=== PATIENT | male | born 1980 | race Hispanic/Latino ===

== ENCOUNTER 2024-05-04 06:58 | Observation (INO) | payer OTHER, SELFPAY ==
[2024-05-04] MEDS ORDERED: ASPIRIN 81 MG CHEWABLE TABLET ONE (07:16)
[2024-05-04 07:26] LABS: Absolute Basophils 0.1 K/uL (0-0.5); Absolute Eosinophils 0.2 K/uL (0-0.5); Absolute Lymphocytes (CBC) 2.4 K/uL (0.7-4.9); Absolute Monocytes 0.9 K/uL (0.1-1.3); Absolute Neutrophil 7.4 K/uL (1.8-8.0); Basophils % 0.6 % (0-1.3); Eosinophils % 1.6 % (0-4.4); Hematocrit 47.4 % (39.6-49.0); Lymphocytes % 22.2 % (15.3-44.8); MCH 30.9 pg (27.0-35.0); MCHC 33.8 g/dL (32.0-36.0); MCV 91.5 fL (80-100); MPV 7.5 fL (7.6-11.3); Monocytes % 8.1 % (3.3-12.3); Neutrophils % 67.5 % (41.7-73.7); Nucleated Red Blood Cells % 0.1 % (0-0); Platelets 383 thou/uL (152-406); RBC Red Blood Cell Count 5.18 M/uL (4.33-5.43); Red Cell Distribution Width 14.5 % (12.1-15.2)
[2024-05-04 07:41] LABS: PT Prothrombin Time 10.8 SECONDS (9.4-12.5); Protime INR 1.03
[2024-05-04 07:51] LABS: Anion Gap 8.9 mEq/L (5.0-15.0); Potassium 3.9 mEq/L (3.5-5.1); Troponin High Sensitivity 3.1 pg/mL (<58.9)
[2024-05-04] MEDS ORDERED: HEPARIN/D5W 25,000 UNIT/500 ML BAG IV ONE (07:54)
[2024-05-04] MEDS ORDERED: HEPARIN 5000 UNIT/ML 1 ML VIAL ONE ×2 (07:54→08:16)
--- NOTE | 2024-05-04 08:04 | ER ---
Nurse's Notes [facility] Name: Edward Chang Age: 44 yrs Sex: Male : 1980 Arrival Date: 05/04/2024 Time: 06:58 Bed 5 Private MD: Diagnosis: Chest pain, unspecified Presentation: 05/04 07:15 Coronavirus screen: Client denies travel out of the [place] in the last 14 days. At this ll1 time, the client does not indicate any symptoms associated with coronavirus-19. Ebola Screen: Patient denies travel to an Ebola-affected area in the 21 days before illness onset. Initial Sepsis Screen: Does the patient meet any 2 criteria? No. Patient's initial sepsis screen is negative. Does the patient have a suspected source of infection? No. Patient's initial sepsis screen is negative. Risk Assessment: Do you want to hurt yourself or someone else? Patient reports no desire to harm self or others. Onset of symptoms was May 04, 2024. 07:15 Method Of Arrival: Ambulatory ll1 07:15 Acuity: WANDA 2 ll1 07:18 Chief complaint: Patient states: Awoke SOB and CP. Numbness to L side of mouth/face. ll1 Both hands feel tingly. Feels better now. Triage Assessment: 07:10 General: Appears in no apparent distress. Behavior is calm, cooperative, appropriate ll1 for age. Pain: Denies pain. Cardiovascular: Reports chest pain, nausea, shortness of breath. Respiratory: Reports shortness of breath. Historical: - Allergies: 07:15 No Known Allergies; ll1 - Home Meds: 07:15 None [Active]; ll1 - PMHx: 07:15 None; ll1 - PSHx: 07:15 None; ll1 - Immunization history:: Adult Immunizations up to date. - Infectious Disease History:: Denies. - Social history:: Smoking status: Patient/guardian denies using tobacco, Stopped _ months ago 6. - Family history:: not pertinent. - Hospitalizations: : No recent hospitalization is reported. Screenin:22 [facility] ED Fall Risk Assessment (Adult) History of falling in the last 3 months, ll1 including since admission No falls in past 3 months (0 pts) Confusion or Disorientation No (0 pts) Intoxicated or Sedated No (0 pts) Impaired Gait No (0 pts) Mobility Assist Device Used No (0 pt) Altered Elimination No (0 pt) Score/Fall Risk Level 0 - 2 = Low Risk Maintained a safe environment, Hourly rounding (assess needs \T\ fall precautionary measures) done. Abuse screen: Denies threats or abuse. Nutritional screening: No deficits noted. Tuberculosis screening: No symptoms or risk factors identified. Assessment: 07:35 Reassessment: No changes from previously documented assessment. Patient and/or family ll1 updated on plan of care and expected duration. Pain level reassessed. Patient is alert, oriented x 3, equal unlabored respirations, skin warm/dry/pink. 07:35 Pain: Pain does not radiate. Pain began 2 hours ago. ll1 07:48 Reassessment: No changes from previously documented assessment. Patient and/or family ll1 updated on plan of care and expected duration. Pain level reassessed. Patient is alert, oriented x 3, equal unlabored respirations, skin warm/dry/pink. 08:05 Reassessment: No changes from previously documented assessment. Patient and/or family ll1 updated on plan of care and expected duration. Pain level reassessed. Patient is alert, oriented x 3, equal unlabored respirations, skin warm/dry/pink. 08:28 Reassessment: No changes from previously documented assessment. Patient and/or family ll1 updated on plan of care and expected duration. Pain level reassessed. Patient is alert, oriented x 3, equal unlabored respirations, skin warm/dry/pink. Vital Signs: 07:15 BP 145 / 90; Pulse 72; Resp 17; Temp 97.9(TE); Pulse Ox 96% on R/A; Weight 124.74 kg; iw Height 5 ft. 7 in. ; Pain 0/10; 07:40 BP 131 / 80; Pulse 68; Resp 17; Pulse Ox 96% on R/A; ll1 08:18 BP 133 / 86; Pulse 76; Resp 17; Pulse Ox 98% ; Pain 0/10; ll1 08:28 BP 139 / 86; Pulse 81; Resp 17; Temp 97.9; Pulse Ox 98% on R/A; Pain 0/10; ll1 07:15 Body Mass Index 43.07 (124.74 kg, 170.18 cm) iw 07:15 Pain Scale: Adult iw 08:18 Pain Scale: Adult ll1 08:28 Pain Scale: Adult ll1 ED Course: 06:59 Patient arrived in ED. mr 06:59 Karlo Luis MD is Attending Physician. rn 07:01 Fidelina Baker, TRINO is Primary Nurse. ll1 07:02 Arm band placed on Patient placed in an exam room, on a stretcher. ll1 07:10 Initial lab(s) drawn, by me, sent to lab. Missed attempt(s): 20 gauge in right ll1 antecubital area. Bleeding controlled, band aid applied, catheter tip intact. 07:16 Triage completed. ll1 07:21 Inserted saline lock: 20 gauge in left antecubital area, using aseptic technique. iw Flushed with 10 mL NS. 07:22 Breastfeeding Program Coordinator paged at 07:22. bd 07:22 Patient has correct armband on for positive identification. Bed in low position. ll1 Provided Education on: ER procedures and process. Client placed on continuous cardiac and pulse oximetry monitoring. NIBP monitoring applied. patient monitor on. 07:23 No provider procedures requiring assistance completed. Patient maintains SpO2 ll1 saturation greater than 95% on room air. 07:28 XRAY Chest (1 view) In Process Unspecified. EDMS 07:49 EKG done, by ED staff, reviewed by Karlo Luis MD. ll1 07:[address] Luis spoke with Dr Naik at 0750. bd 08:02 Inserted saline lock: 20 gauge in right antecubital area, using aseptic technique. kb4 Flushed with 10 mL NS. 08:04 Aaron Luis MD is Hospitalizing Provider. rn 08:19 Patient admitted, IV remains in place. ll1 Administered Medications: 07:15 Drug: Aspirin PO Chewable Tablet 324 mg PO once; 81 mg tablets x 4 Route: PO; iw 07:55 Follow up: Response: No adverse reaction ll1 08:03 Drug: Heparin (NV-Bolus No thrombolytic) - HEParin IVP 60 units/kg IVP once; Max 5000 ll1 units {Co-Signature: ss (Kiya Bridges RN).} Route: IVP; Site: right antecubital; 08:19 Follow up: Response: No adverse reaction ll1 08:04 Drug: Heparin ([place] Drip) 12 units/kg/[place] - ([place] [address] units, D5W IV 500 ml) IV at [facility] calculated rate Per protocol; Max initial rate 1000 units/hr {Co-Signature: ss (Kiya Bridges RN).} Route: IV; Rate: calculated rate; Site: right antecubital; 08:19 Follow up: Response: No adverse reaction; IV Status: Infusion continued upon admission; [facility] IV Intake: 6ml Medication: 07:22 VIS not applicable for this client. 1 Intake: 08: IV: 6ml; Total: 6ml. [facility] Outcome: 08:04 Decision to Hospitalize by Provider. rn 08: Admitted to OR accompanied by tech, via wheelchair, on monitor, with chart, [facility] : Condition: stable 08:19 Instructed on the need for admit, 08:28 Patient left the ED. [facility] Signatures: Dispatcher [employer] EDMS Jenniffer Pemberton, Amanda, Reg Reg mr Amanda Chavez RN RN iw Nieto, Roman, MD MD rn Lewis, Lynsay, RN RN [facility] Lilliana Marcial kb4 Kiya Bridges RN ss Corrections: (The following items were deleted from the chart) 07:22 07:15 BP 145 / 90; Pulse 72bpm; Resp 17bpm; Pulse Ox 96% RA; Pain 0/10, Adult; 1 1 07:30 07:15 BP 145 / 90; Pulse 72bpm; Resp 17bpm; Pulse Ox 96% RA; 124.74 kg; Height 5 ft. 7 iw in.; BMI: 43.0; Pain 0/10, Adult; 1 08:20 08:19 Pain: Pain does not radiate. Pain began 2 hours ago. [facility] 08:30 08:28 BP 139 / 86; Pulse 81bpm; Resp 17bpm; Pulse Ox 98% RA; 1 1
--- NOTE | 2024-05-04 08:04 | EDPHYS ---
Physician Documentation [facility] Name: Edward Chang Age: 44 yrs Sex: Male : 1980 Arrival Date: 05/04/2024 Time: 06:58 Bed 5 Private MD: ED Physician Karlo Luis HPI: 05/04 07:23 This 44 yrs old Male presents to ER via Ambulatory with complaints of Chest rn Pain, facial numbness. 07:23 The patient or guardian reports chest pain that is located primarily in the substernal rn area. Onset: just prior to arrival. The pain does not radiate. Associated signs and symptoms: Pertinent positives: nausea, palpitations, shortness of breath, Pertinent negatives: abdominal pain, cough, syncope, vomiting. The chest pain is described as aching, a heaviness. Duration: The patient or guardian reports a single episode, that lasted 25 minute(s). Modifying factors: The symptoms are alleviated by nothing. the symptoms are aggravated by nothing. Severity of pain: At its worst the pain was moderate in the emergency department the pain has resolved. Patient reports woke up from sleep with substernal chest pain, associated with shortness of breath, facial and bilateral hand tingling, nausea and indigestion. States went to bed feeling fine last night. No fever or chills. No recent illness. No trauma. Patient reports does suffer from anxiety. No previous medical problems other than hypertension. Father with significant history of strokes.. Historical: - Allergies: 07:15 No Known Allergies; ll1 - Home Meds: 07:15 None [Active]; ll1 - PMHx: 07:15 None; ll1 - PSHx: 07:15 None; ll1 - Immunization history:: Adult Immunizations up to date. - Infectious Disease History:: Denies. - Social history:: Smoking status: Patient/guardian denies using tobacco, Stopped _ months ago 6. - Family history:: not pertinent. - Hospitalizations: : No recent hospitalization is reported. ROS: 07:23 Constitutional: Negative for fever, chills, and weight loss, Cardiovascular: Positive rn for chest pain Respiratory: Positive for shortness of breath Abdomen/GI: Negative for abdominal pain, nausea, vomiting, diarrhea, and constipation, MS/Extremity: Negative for injury and deformity, Skin: Negative for injury, rash, and discoloration, Neuro: Negative for headache, weakness, and seizure, Exam: 07:23 Constitutional: This is a well developed, well nourished patient who is awake, alert, rn and in no acute distress. Cardiovascular: Regular rate and rhythm. No pulse deficits. Respiratory: No increased work of breathing, no retractions or nasal flaring. Abdomen/GI: Soft, non-tender MS/ Extremity: Pulses equal, no cyanosis. Neurovascular intact. Full, normal range of motion. Equal circumference. Neuro: Awake and alert, GCS 15, oriented to person, place, time, and situation. Cranial nerves II-XII grossly intact. Motor strength 5/5 in all extremities. Sensory grossly intact. Cerebellar exam normal. Normal gait. Ambulatory to room without difficulty or assistance Vital Signs: 07:15 BP 145 / 90; Pulse 72; Resp 17; Temp 97.9(TE); Pulse Ox 96% on R/A; Weight 124.74 kg; iw Height 5 ft. 7 in. ; Pain 0/10; 07:40 BP 131 / 80; Pulse 68; Resp 17; Pulse Ox 96% on R/A; ll1 08:18 BP 133 / 86; Pulse 76; Resp 17; Pulse Ox 98% ; Pain 0/10; ll1 08:28 BP 139 / 86; Pulse 81; Resp 17; Temp 97.9; Pulse Ox 98% on R/A; Pain 0/10; ll1 07:15 Body Mass Index 43.07 (124.74 kg, 170.18 cm) iw 07:15 Pain Scale: Adult iw 08:18 Pain Scale: Adult ll1 08:28 Pain Scale: Adult ll1 MDM: 06:59 Medical Screening Exam initiated rn 07:15 ED course: Called Dr. Wagner for STEMI consultation, no answer, message with ECG image rn sent, waiting quality control associate back.. 07:33 ED course: Called Dr. Wagner and paged him separately, no answer. . rn 07:35 ED course: ECG shows ST elevation in the inferior leads per my interpretation. Appears rn more J-point elevation and there are no reciprocal changes. This in commendation with completely resolved chest pain and asymptomatic patient, unlikely STEMI but still waiting cardiology consultation. Aspirin ordered and given. Still chest pain-free.. 07:49 ED course: Paged Dr. Naik for consultation, returned call quickly and recommends rn aspirin and heparin and will see patient.. 08:03 Differential diagnosis: abnormal EKG, acute myocardial infarction, anxiety, coronary rn artery disease chest wall pain, stable angina, unstable angina. HEART Score: History: Highly Suspicious (2), ECG: Non specific repolarization disturbance / LBTB / PM (1), Age: < or = 45 years (0), Risk Factors: 1 or 2 risk factors (1), Troponin: < or = 1 x Normal Limit (0), Total Score = 4. The patient was given aspirin in the Emergency Department. Data reviewed: vital signs, nurses notes, lab test result(s), EKG, radiologic studies, plain films, and as a result, I will admit patient. Consideration of Admission/Observation Patient was admitted/placed on observation. Escalation of care including admission/observation considered. Counseling: I had a detailed discussion with the patient and/or guardian regarding the historical points, exam findings, and any diagnostic results supporting the discharge/admit diagnosis, lab results, radiology results, the need for further work-up and treatment in the hospital. 05/04 07:10 Order name: Basic Metabolic Panel; Complete Time: 07: rn 05/04 07:10 Order name: CBC with Diff; Complete Time: rn 05/04 07:10 Order name: NT PRO-BNP; Complete Time: rn 05/04 07:10 Order name: PT-INR; Complete Time: : rn 05/04 07:10 Order name: Troponin HS; Complete Time: : rn 05/04 07:10 Order name: XRAY Chest (1 view) rn 05/04 08:15 Order name: Echo with Doppler EDKS 05/04 07:48 Order name: EKG; Complete Time: 07:49 ll1 05/04 07:10 Order name: Cardiac monitoring; Complete Time: 07: rn 05/04 07:10 Order name: EKG - Nurse/Tech; Complete Time: 07: rn 05/04 07:10 Order name: IV Saline Lock; Complete Time: 07: rn 05/04 07:10 Order name: Labs collected and sent; Complete Time: 07: rn 05/04 07:10 Order name: O2 Per Protocol; Complete Time: :05/04 07:10 Order name: O2 Sat Monitoring; Complete Time: 07:14 rn 05/04 07:48 Order name: EKG - Nurse/Tech; Complete Time: 07:48 ll1 Administered Medications: 07:15 Drug: Aspirin PO Chewable Tablet 324 mg PO once; 81 mg tablets x 4 Route: PO; iw 07:55 Follow up: Response: No adverse reaction ll1 08:03 Drug: Heparin (GA-Bolus No thrombolytic) - HEParin IVP 60 units/kg IVP once; Max 5000 ll1 units {Co-Signature: lyssa (Kiya Bridges RN).} Route: IVP; Site: right antecubital; 08:19 Follow up: Response: No adverse reaction ll1 08:04 Drug: Heparin ([place] Drip) 12 units/kg/[place] - ([place] [address] units, D5W IV 500 ml) IV at ll1 calculated rate Per protocol; Max initial rate 1000 units/hr {Co-Signature: lyssa (Kiya Bridges RN).} Route: IV; Rate: calculated rate; Site: right antecubital; 08:19 Follow up: Response: No adverse reaction; IV Status: Infusion continued upon admission; ll1 IV Intake: 6ml Disposition Summary: 05/04/24 08:04 Hospitalization Ordered Notes: Hospitalization Status: Observation rn Provider: Aaron Luis rn [facility] rn Condition: Stable rn Problem: new rn Symptoms: have improved rn Bed/Room Type: Standard rn Room Assignment: rn Diagnosis - Chest pain, unspecified rn Forms: - Medication Reconciliation Form rn - SBAR form rn - Leadership Thank You Letter rn Signatures: Dispatcher [employer] Amanda Hernandez RN RN Karlo Luis MD MD rn Lewis, Lynsay, RN RN ll1 Kiya Bridges RN ss Corrections: (The following items were deleted from the chart) 07:11 07:11 BASIC METABOLIC PANEL+C.LAB.BRZ ordered. EDMS EDMS 07:11 07:11 CBC+H.LAB.BRZ ordered. EDMS EDMS 07:11 07:11 PROBNP+C.LAB.BRZ ordered. EDMS EDMS 07:11 07:11 PROTIME (+INR)+COAG.LAB.BRZ ordered. EDMS EDMS 07:11 07:11 Troponin High Sensitivity+C.LAB.BRZ ordered. EDMS EDMS 07: 07:11 Chest Single View+RAD.RAD.BRZ ordered. EDMS EDMS 08:06 07:49 ED course: Paged Dr. Naik for consultation, come back quickly and sent to me rn CT. Recommends aspirin and heparin and will see patient.. rn
[2024-05-04] MEDS ORDERED: HEPARIN 10,000 UNIT/10 ML VIAL IV ONE (08:15)
[2024-05-04] MEDS ORDERED: LIDOCAINE 1% 20 ML MDV ONE (08:15)
[2024-05-04] MEDS ORDERED: HEPA 1000U/500MLS 2,000 UNIT/1,000 ML BAG IV ONE (08:15)
[2024-05-04] MEDS ORDERED: MIDAZOLAM HCL 2 MG/2 ML INJ ONE (08:16)
[2024-05-04] MEDS ORDERED: TICAGRELOR 90 MG TABLET PO ONE (08:16)
[2024-05-04] MEDS ORDERED: CLOPIDOGREL 75 MG TABLET ONE (08:16)
[2024-05-04] MEDS ORDERED: ATROPINE SULF 1 MG/10 ML SYR IV ONE (08:16)
[2024-05-04] MEDS ORDERED: NALOXONE 0.4 MG/ML VIAL ONE (08:17)
[2024-05-04] MEDS ORDERED: FENTANYL CITR 100 MCG/2 ML ONE (08:17)
[2024-05-04] MEDS ORDERED: FLUMAZENIL 0.1 MG/ML (5 mL VIAL) IV ONE (08:17)
[2024-05-04] MEDS ORDERED: ASPIRIN 325 MG TAB ONE (08:17)
--- NOTE | 2024-05-04 08:33 | RAD REPORT ---
EXAMINATION: ONE VIEW CHEST XR CLINICAL INDICATION: CHEST PAIN TECHNIQUE: Frontal chest projection is submitted. Examination is limited by patient positioning and t echnique. COMPARISON: No prior exam. FINDINGS: The lungs are well inflated and clear. The heart is upper limit of normal in size. No displaced fract ures identified. IMPRESSION: No acute intrathoracic abnormalities.
[2024-05-04] MEDS ORDERED: NA CHLORIDE 0.9% 500 ML ONE (08:35)
[2024-05-04 09:02] VITALS: TEMP 97.9
[2024-05-04] MEDS ORDERED: MORPHINE 2 MG/ML SYR IV PRN (10:01)
[2024-05-04] MEDS ORDERED: ASPIRIN EC 81 MG TAB PO SCH (10:01)
[2024-05-04] MEDS ORDERED: HEPARIN/D5W 25,000 UNIT/500 ML BAG IV SCH (10:01)
[2024-05-04] MEDS ORDERED: NA CHLORIDE 0.9% 1,000 ML IV SCH (10:01)
[2024-05-04] MEDS ORDERED: ONDANSETRON 4 MG/2 ML VIAL IV PRN (10:01)
[2024-05-04 10:15] VITALS: BMI 43.0
--- NOTE | 2024-05-04 10:32 | P.SSS ---
Patient History Date of Service: 05/04/24 Reason for admission: Chest pain History of Present Illness: Patient was admitted to the hospital for chest pain, he had some questionable elevations in leads II, III and aVF on his EKG without any reciprocal changes. Given these changes he was admitted in urgently for coronary angiogram. He was chest pain free at that time. His cath came back without any significant CAD, he is stable for discharge and outpatient follow-up at this time. Please fo llow-up with cardiology in 1 week for further evaluation. 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 moist/pink, EOMI, Sclerae nonicteric Neck: Supple, 2+ carotid pulse no bruit, No LAD, Without JVD or thyroid abnormality Respiratory: Clear to auscultation bilaterally, Normal air movement Cardiovascular: Regular rate/rhythm, Normal S1 S2 Gastrointestinal: Normal bowel sounds, No tenderness Musculoskeletal: No tenderness Integumentary: No rashes Neurological: Normal speech, Normal strength at 5/5 x4 extr, Normal tone, Normal affect - Studies Laboratory Data (last 24 hrs) 05/04/24 05/04/24 05/04/24 07:10 07:10 07:10 WBC 11.00 H Hgb 16.0 Hct 47.4 Plt Count 383 PT 10.8 INR 1.03 Sodium 139 Potassium 3.9 BUN 15 Creatinine 0.80 Glucose 95 Treatment Summary: Patient was admitted to the hospital for chest pain, he had some questionable elevations in leads II, III and aVF on his EKG without any reciprocal changes. Given these changes he was admitted in urgently for coronary angiogram. He was chest pain free at that time. His cath came back without any significant CAD, he is stable for discharge and outpatient follow-up at this time. Please follow-up with cardiology in 1 week for further evaluation. - Disposition Discharge Date: 05/04/24 Disposition: ROUTINE DISCHARGE Condition: GOOD Patient Discharge Instructions: Follow-up with cardiology/Dr. Naik in 1 week Diet: Regular Activity: Ad leo Time Spent Managing Pts Care (In Minutes): 72
--- NOTE | 2024-05-04 10:59 | P.CNS ---
Date of Consult: 05/04/24 Chief Complaint: Chest pain History of Present Illness: Patient presented with nausea and chest pressure with tingling sensation in his face that woke him from sleep lasted 30 minutes then resolved, report family history of stroke, no other cardiac symptoms. 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 moist/pink, EOMI, Sclerae nonicteric Neck: Supple, 2+ carotid pulse no bruit, No LAD, Without JVD or thyroid abnormality Respiratory: Clear to auscultation bilaterally, Normal air movement Cardiovascular: Regular rate/rhythm, Normal S1 S2 Gastrointestinal: Normal bowel sounds, No tenderness Musculoskeletal: No tenderness Integumentary: No rashes Neurological: Normal gait, Normal speech, Normal tone, Normal affect Lymphatics: No axilla or inguinal lymphadenopathy Laboratory Data (last 24 hrs) 05/04/24 05/04/24 05/04/24 07:10 07:10 07:10 WBC 11.00 H Hgb 16.0 Hct 47.4 Plt Count 383 PT 10.8 INR 1.03 Sodium 139 Potassium 3.9 BUN 15 Creatinine 0.80 Glucose 95 - Problems (1) Chest pain Current Visit: Yes Status: Acute Plan: EKG with concerns for ST elevation inferior leads so coronary angiogram done and that shown normal coronaries. Continue medical management and risk factors modification.
[2024-05-04 11:54] VITALS: O2SAT 96
[2024-05-04 12:15] VITALS: BP 121/79
[2024-05-04] MEDS ORDERED: ATORVASTATIN 40 MG TAB PO SCH (21:00)
--- NOTE | 2024-05-04 22:23 | OP ---
Date of Procedure: 05/04/2024 Surgeon: Damion Naik Procedure Performed: 1.Left heart catheterization. 2.Selective coronary angiogram. Indication For Procedure: Unstable angina. Complications: None. Estimated Blood Loss: Less than 50 cc. Access: Right radial, closed by TR band. Sedation Time: 20 minutes with 1 of Versed and 25 of fentanyl. Description Of Procedure: After risks, benefits, and alternatives were explained to the patient, the patient agreed to proceed with the procedure and signed informed consent. The patient was [facility] to the roofing laborer, prepped and draped in sterile fashion. Time-out was performed. Sedation was ad ministered. Right radial access was obtained using ultrasound-guided micropuncture technique. A 5-F renJournallyMe [place] 4.0 catheter was advanced over a J-wire to the LV cavity. LVEDP was obtained. Pullback did not show any gradient. Same catheter was used for selective angiogram of the left and right [place] nary artery systems. At the end of procedure, catheter was removed over a J-wire. Sheath was remove d. TR band was applied. Hemostasis was achieved. The patient was moved back to Recovery in stable condition. Findings: 1.Left main normal. 2.LAD; mild luminal irregularities with mid 25% disease and mild luminal irregularities. 3.Left circ; mild luminal irregularities. 4.RCA; mild luminal irregularities. 5.LVEDP 20 mmHg. Assessment And Plan: 1.Normal coronaries. 2.Normal filling pressure. Plan will be to continue medical management. MELISSA/ERYN Voice ID: [id number] Report ID: [id number]
--- NOTE | 2024-05-07 13:04 | EKG ---
Test Date: 2024-05-04 Test Time: 07:08:06 Load Out Person: KALI MEASUREMENT RESULTS: Intervals: Rate: 73 NM: 172 QRSD: 112 QT: 396 QTc: 436 [place]: P: 47 NM: 172 QRS: 103 T: 59 INTERPRETIVE STATEMENTS: Normal sinus rhythm Possible Right ventricular hypertrophy ST elevation, consider inferior injury or acute infarct ACUTE MS / STEMI Abnormal ECG Compared to ECG 05/04/2024 07:07:18 Incomplete right bundle-branch block no longer present ST (T wave) deviation still present Myocardial infarct finding still present Electronically Signed On 05-07-24 13:00:24 GENERAL MAINTENANCE MECHANIC by Damion Naik
--- NOTE | 2024-05-07 13:04 | EKG ---
Test Date: 2024-05-04 Test Time: 07:07:18 Supply Chain Analyst: KALI MEASUREMENT RESULTS: Intervals: Rate: 72 WV: 166 QRSD: 118 QT: 394 QTc: 431 [place]: P: 46 WV: 166 QRS: 103 T: 60 INTERPRETIVE STATEMENTS: Normal sinus rhythm Incomplete right bundle branch block Possible Right ventricular hypertrophy ST elevation, consider inferior injury or acute infarct ACUTE VA / STEMI Abnormal ECG No previous ECG available for comparison Electronically Signed On 05-07-24 13:00:27 MITOCHONDRIAL DISORDERS COUNSELOR by Damion Naik
--- NOTE | 2024-05-07 13:04 | EKG ---
Test Date: 2024-05-04 Test Time: 07:46:01 Lime Vat Tender: KALI MEASUREMENT RESULTS: Intervals: Rate: 68 MT: 178 QRSD: 118 QT: 396 QTc: 421 [place]: P: 52 MT: 178 QRS: 99 T: 55 INTERPRETIVE STATEMENTS: Normal sinus rhythm Rightward axis Incomplete right bundle branch block ST elevation, consider inferior injury or acute infarct ACUTE [place] / STEMI Abnormal ECG Compared to ECG 05/04/2024 07:08:06 Right-axis deviation now present Incomplete right bundle-branch block now present ST (T wave) deviation still present Myocardial infarct finding still present Electronically Signed On 05-07-24 13:00:22 PROJ MGR by Damion Naik
== END 2024-05-04 12:04 | disposition home or self-care (01) ==
LOC: ER 06:58 → ERHOLD 08:12 → 4TH 09:47
PROVIDERS: ADMIT Hospitalist; ATTEND Hospitalist
PROC: 4A023N7 Measurement of Cardiac Sampling and Pressure, Left Heart, Percutaneous Approach (ICD-10-PCS; principal; 2024-05-04)
PROC: B2111ZZ Fluoroscopy of Multiple Coronary Arteries using Low Osmolar Contrast (ICD-10-PCS; 2024-05-04)
DX: R07.9 Chest pain, unspecified (principal); Z87.891 Personal history of nicotine dependence; Z82.3 Family history of stroke
CPT/HCPCS: 93005 ×3; 85025; 80048; 36415; 85610; 84484; 83880; 71045; 93458; 76937; 96374; 99285; C1893; Q9966; J1644 ×2; J2003; J2250; J3010; G0378 ×3; J7040; 99152; J0461; J2310